=== PATIENT | female | born 1935 | race Caucasian/White ===

== ENCOUNTER 2016-04-25 11:04 | Outpatient (CLI) ==
[2016-02-19 03:43] VITALS: BMI 28.3
[2016-04-25 11:26] VITALS: BP 149/65; TEMP 96.8
== END 2016-04-25 11:05 | disposition home or self-care (01) ==
LOC: OPMED 11:04
PROVIDERS: ATTEND Internal Medicine Hematology & Oncology
DX: C34.11 Malignant neoplasm of upper lobe, right bronchus or lung (principal)
CPT/HCPCS: 96523; 99211

== ENCOUNTER 2016-06-02 14:30 | Outpatient (CLI) ==
[2016-06-02 15:02] VITALS: BMI 27.4
== END 2016-06-02 14:31 ==
LOC: AMBL 14:30
PROVIDERS: ATTEND Internal Medicine
DX: R07.89 Other chest pain (principal); W19.XXXA Unspecified fall, initial encounter

== ENCOUNTER 2016-06-02 14:45 | Emergency (ER) ==
[2016-06-02 15:02] VITALS: BP 146/70; TEMP 97.8; BMI 27.4
--- NOTE | 2016-06-02 16:04 | CT ---
EXAM: CT chest without contrast. HISTORY: Initial presentation for chest trauma due to a fall. COMPARISON: 07/04/2011. TECHNIQUE: Multiple axial images of the chest were obtained without intravenous contrast. Images w ere reformatted in the sagittal and coronal planes. FINDINGS: Left-sided chest port is present with tip terminating in the superior vena cava. Evaluat ion for lymphadenopathy is limited due to lack of intravenous contrast. Heart size is normal. No p ericardial effusion identified. No anterior mediastinal fluid collections noted. Atherosclerotic c alcifications are present. Emphysematous changes present bilaterally. Right upper lobe linear scarring is now present in the a kaykay previously noted right upper lobe nodule. No consolidation, pleural effusion or pneumothorax id entified. Limited images of the upper abdomen demonstrate no acute finding. Degenerative changes present throughout the spine. No acute fracture identified. IMPRESSION: Local No acute post-traumatic abnormality of the chest.
--- NOTE | 2016-06-02 16:05 | CT ---
EXAM: CT thoracic spine without contrast. HISTORY: Initial presentation for back pain following a fall. COMPARISON: Chest CT 07/04/2011. TECHNIQUE: Multiple axial images of the thoracic spine were obtained without intravenous contrast. Images were reformatted in the sagittal and coronal planes. FINDINGS: The normal curvature and alignment are maintained. Vertebral body heights are normal. N o fracture or subluxation is seen. Multilevel loss of disc height and endplate osteophyte formation noted, greatest in the mid thoracic spine. No significant central canal stenosis identified. Sofy cent soft tissues are unremarkable. IMPRESSION: No acute abnormality of the thoracic spine.
--- NOTE | 2016-06-02 16:15 | CT ---
EXAM: CT ABDOMEN AND PELVIS HISTORY: Fall TECHNIQUE: CT abdomen and pelvis without intravenous contrast. Images were reconstructed using 5 m m section thickness. Reformations were prepared. COMPARISON: 02/19/2016 FINDINGS: Diagnostic limitations exist without including contrast enhanced images. There is no evidence of fo evelia hepatic or splenic lesions or lacerations. Gallbladder is absent. Pancreas and adrenal glands are within normal limits. No hydronephrosis or nephrolithiasis. No evidence of renal cortical inju ry or hematoma. Moderately severe atherosclerotic disease. Normal stomach and appendix. No evidence of bowel wall hematoma or bowel obstruction. A few rare c olonic diverticula are seen. Urinary bladder is intact. No uterus is identified. There is no asci anitha. Abdominal wall is intact. No notable peripheral soft tissue hematoma. The bones reveal no acute de formity or fracture. Moderate degenerative changes of the lower spine and sacroiliac joints. No pn eumoperitoneum. See also same day CT thorax report. IMPRESSION: No acute injuries identified.
[2016-06-02] MEDS ORDERED: NORCO 5-325 PO STA (16:23)
--- NOTE | 2016-06-02 16:23 | ED.PDOC ---
General ED Provider: Dr. MARION ZAMORA Chief Complaint: Fall Stated Complaint: fall chest wall pain back pain Time Seen by Physician: 14:50 Mode of Arrival: Ambulance Information Source: Patient Exam Limitations: No limitations Primary Care Provider: LINDA GARZA Nursing and Triage Documentation Reviewed and Agree: Yes Trauma/Injury Complaint Exam - Trauma Complaint/Exam Location of Pain or Injury: Reports: Chest, Back Mechanism of Injury: Reports: Fall Onset/Duration: 1 day Symptoms Are: Still present Timing of Treatment: Delayed Initial Severity: Moderate Current Severity: Mild Character: Reports: Aching Aggravating: Reports: Movement Alleviating: Reports: Rest Associated Signs and Symptoms: Denies: LOC, Confusion, Memory loss, Lethargy, Vomiting, Bleeding, Bruising, Swelling, Extremity disuse, Painful respiration, Hoarseness, Dysphagia, Hemoptysis, Significant blood loss Penetrating Injury Risk Factors: Reports: None Related Surgical History: Reports: None Nexus Low Risk Criteria: No post-midline CS tender, No evidence of intoxicat., No Altered LOC, No focal neuro deficit, No distracting injuries Glascow Coma Scale (see protocol): 15 Compartment Syndrome Risk Factors: Present: Pain Differential Diagnoses: Fracture, Sprain, Strain Review of Systems - Review Of Systems Constitutional: Reports: No symptoms Eyes: Reports: No symptoms Ears, Nose, Mouth, Throat: Reports: No symptoms Respiratory: Reports: No symptoms Cardiac: Reports: Chest pain (wall) GI: Reports: No symptoms : Reports: No symptoms Musculoskeletal: Reports: Back pain Skin: Reports: No symptoms Neurological: Reports: No symptoms Endocrine: Reports: No symptoms Hematologic/Lymphatic: Reports: No symptoms All Other Systems: Reviewed and Negative Past Medical History - Past Medical History Previously Healthy: No Endocrine: Reports: DM 2, Dyslipidemia Cardiovascular: Reports: Hypertension Respiratory: Reports: COPD Hematological: Reports: Anemia Gastrointestinal: Reports: GERD Genitourinary: Reports: None Neuro/Psych: Reports: None Musculoskeletal: Reports: Arthritis, Joint Pain 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 (DR CASANOVA CHEMO AND RADIIATION) Last Menstrual Period: na - Surgical History General Surgical History: Reports: None - Family History Family History: Reports: None - Social History Smoking Status: Former smoker Hx Substance Use: No Alcohol Screening: None - Immunizations Tetanus Shot up to Date: No Physical Exam - Physical Exam Appearance: Well-appearing, No pain distress, Well-nourished Eyes: ARLET, EOMI, Conjunctiva clear ENT: Ears normal, Nose normal, Oropharynx normal Respiratory: Airway patent, Breath sounds clear, Breath sounds equal, Respirations nonlabored Cardiovascular: RRR, Pulses normal, No rub, No murmur GI/: Soft, Nontender, No masses, Bowel sounds normal, No Organomegaly Musculoskeletal: Normal strength, ROM intact, No edema, No calf tenderness Skin: Warm, Dry, Normal color Neurological: Sensation intact, Motor intact, Reflexes intact, Cranial nerves intact, Alert, Oriented Psychiatric: Affect appropriate, Mood appropriate Interpretation - Radiology Interpretation Radiology Interpretation By: Radiologist Radiology Results: No acute changes Critical Care Note - Critical Care Note Total Time (mins): 0 Course - Course Orders, Labs, Meds: Orders Category Date Time Status Hydrocodone Bit/Acetaminophen [[place] 5-325] MEDS 06/02/16 16:23 Discontinued 1 tab PO ONCE STA CT ABDOMEN/PELVIS WO CONTRAST Stat RADS 06/02/16 15:[address] CHEST W/O CONTRAST Stat RADS 06/02/16 15:[address] THORACIC SPINE W/O CONTRAST Stat RADS 06/02/16 15:14 Completed Medications Discontinued Medications Generic Name Dose Route Start Last Admin Trade Name Freq PRN Reason Stop Dose Admin Acetaminophen/Hydrocodone Bitart 1 tab 06/02/16 16:23 06/02/16 16:37 [place] 5-325 PO 06/02/16 16:24 1 tab ONCE STA Administration Vital Signs: Temp Pulse Resp BP Pulse Ox 06/02/16 14:45 97.8 F 74 16 146/70 H 98 Departure - Departure Time of Disposition: 17:00 Disposition: HOME SELF-CARE Discharge Problem: Chest wall pain Instructions: Chest Wall Pain (ED), Thoracic Pain (ED) Condition: Good Pt referred to PMD for follow-up: No Prescriptions: Hydrocodone/Acetaminophen [[place] 5-325 Tablet] 1 each PO Q6HR PRN #12 tablet PRN Reason: PAIN Allergies/Adverse Reactions: Allergies amoxicillin trihydrate [From Augmentin] Adverse Reaction (Verified 06/02/16 15: 05) potassium clavulanate [From Augmentin] Adverse Reaction (Verified 06/02/16 15:05 ) Home Medications: Ambulatory Orders Calcium Carbonate/Vitamin D3 [Calcium 600 + Vit D 400 Tablet] 1 each PO BID 09/07 Esomeprazole Magnesium [Nexium] 40 mg PO DAILY 10/02/12 Ferrous Fumarate [Iron] 55 mg PO DAILY 10/02/12 Folic Acid 1 mg PO DAILY 10/02/12 Nitroglycerin [Nitrostat] 0.3 mg SL PRN PRN 10/02/12 Primidone [Mysoline] 50 mg PO BID 10/02/12 Canagliflozin [Invokana] 100 mg PO DAILY 02/05/15 Glipizide 10 mg PO BID 02/05/15 Cyanocobalamin (Vitamin B-12) [Cyanocobalamin Injection] 1,000 mcg IJ MONTHLY Hydrocodone/Acetaminophen [[place] 5-325 Tablet] 1 each PO Q6HR PRN #12 tablet 09/11
== END 2016-06-02 17:01 | disposition home or self-care (01) ==
LOC: ED 14:45
DX: R07.89 Other chest pain (principal); M54.6 Pain in thoracic spine; W19.XXXA Unspecified fall, initial encounter
CPT/HCPCS: 99283

== ENCOUNTER 2016-06-28 10:46 | Outpatient (CLI) | payer OTHER | END 2016-06-28 10:47 | disposition home or self-care (01) | LOC: OUTPT 10:46 | PROVIDERS: ATTEND Internal Medicine Hematology & Oncology | DX: C34.11 Malignant neoplasm of upper lobe, right bronchus or lung (principal); Z45.2 Encounter for adjustment and management of vascular access device | CPT/HCPCS: 96523 ==

== ENCOUNTER 2016-10-19 06:43 | Emergency (ER) ==
[2016-10-19 06:56] VITALS: BP 157/80; TEMP 98; BMI 28.3
[2016-10-19 07:48] LABS: BASOPHILS # (AUTO) 0.1 K/uL (0-0.2); BASOPHILS % (AUTO) 0.9 % (0.0-3.0); EOSINOPHILS # (AUTO) 0.2 K/ul (0.0-0.7); EOSINOPHILS % (AUTO) 2.1 % (0.0-7.0); HEMATOCRIT 40.1 % (37.0-47.0); HEMOGLOBIN 13.6 g/dl (12.0-16.0); IMMATURE GRANULOCYTE % (AUTO) 0.8 % (0.0-5.0); LYMPHOCYTES # (AUTO) 1.4 K/uL (0.60-3.4); LYMPHOCYTES % (AUTO) 15.9 (10.0-50.0); MEAN CORPUSCULAR HEMOGLOBIN 29.4 pg (27.0-31.0); MEAN CORPUSCULAR HGB CONC 33.9 (31.8-35.4); MEAN CORPUSCULAR VOLUME 86.6 fl (81.0-99.0); MONOCYTES # (AUTO) 0.4 K/uL (0.4-2.0); MONOCYTES % (AUTO) 4.8 (0-10); NEUTROPHILS # (AUTO) 6.7 K/ul (2.0-6.9); NEUTROPHILS % (AUTO) 75.5; PLATELET COUNT 199 10^3/uL (140-440); RED BLOOD COUNT 4.63 10^6/ul (4.20-5.40); WHITE BLOOD COUNT 8.88 K/ul (4.6-10.2)
[2016-10-19 07:52] LABS: BILIRUBIN,URINE Negative (NEGATIVE); KETONES,URINE Negative (NEGATIVE); LEUKOCYTE ESTERASE ,URINE Negative (NEGATIVE); NITRITE,URINE Negative (NEGATIVE); PH,URINE 6.5 (5-9); PROTEIN,URINE Negative (NEGATIVE); URINE, BLOOD Negative (NEGATIVE)
[2016-10-19 07:55] LABS: ADD URINE MICROSCOPIC YES
[2016-10-19 07:56] LABS: BACTERIA,URINE 2+ (NOT PRESENT)
[2016-10-19 08:04] LABS: ALBUMIN 3.6 g/dL (3.4-5.0); ALBUMIN/GLOBULIN RATIO 1.09; ANION GAP 15.4; BILIRUBIN,TOTAL 0.58 mg/dL (0.00-1.20); BUN/CREATININE RATIO 12.71; CALCIUM 9.9 mg/dL (8.2-10.2); CREATININE 1.18 mg/dL (0.60-1.30); POTASSIUM 4.4 mmol/L (3.5-5.10); TOTAL PROTEIN 6.9 g/dL (5.8-8.1)
--- NOTE | 2016-10-19 08:07 | DI ---
EXAM: CHEST FRONTAL VIEW HISTORY: Cough. COMPARISON: 06/25/2012 FINDINGS: Heart size remains normal. Left venous access catheter is present ending over the superi or vena cava. There is a discoid density in the mid right lung suggesting transverse fissural thick ening. This can be fibrotic, atelectatic or infectious in etiology. Lungs are otherwise clear. No pleural fluid or vascular congestion. IMPRESSION: Discoid density mid right lung could represent atelectasis, scarring or mild pneumonia. Recommend fo llow-up chest radiography to assure clearance.
[2016-10-19] MEDS ORDERED: MORPHINE 4 MG/ML SYRINGE IM STA (08:34)
[2016-10-19] MEDS ORDERED: ZOFRAN 4 MG/2 ML IM STA (08:34)
--- NOTE | 2016-10-19 08:34 | ED.PDOC ---
General ED Provider: Dr. MARION ZAMORA Chief Complaint: Non-specific Complaint Stated Complaint: pain all over Time Seen by Physician: 07:00 (on arrival denied any pain) Mode of Arrival: Ambulance Information Source: Patient, EMT Exam Limitations: No limitations Primary Care Provider: LINDA GARZA Nursing and Triage Documentation Reviewed and Agree: Yes Miscellaneous Complaint Exam - Complex/Multi-System Complaint/Exam Symptoms Are: Resolved Episodes Lasting: Minutes Initial Severity: Mild Current Severity: None Associated Signs and Symptoms: Denies: Decreased responsiveness, Confusion, Agitation, Dizziness, Weakness, Syncope, Headache, Short of air, Cough, Wheezing , Hemoptysis, Chest pain, Palpitations, Edema, Nausea, Vomiting, Diarrhea, Abdominal pain, Back pain, Dysuria, Hematemesis, Melena, Decreased oral intake, Fever, Diaphoresis, Immunocompromised, Anticoagulation Therapy, Recent medication changes, Indwelling medical physiologist, Prior MRSA, Prior VRE, Recent trauma, Remote trauma Recent Echo/LV Function: No Respiratory Distress: None JVD Present: No Tachypnea Present: No Stridor Present: No Abdominal Findings: Present: Normal findings Glascow Coma Scale (see protocol): 15 Meningeal Signs Positive: No Focal Weakness: Present: None Focal Sensory Loss: Present: None Babinski Sign: Negative Right, Negative Left Review of Systems - Review Of Systems Constitutional: Reports: Malaise Eyes: Reports: No symptoms Ears, Nose, Mouth, Throat: Reports: No symptoms Respiratory: Reports: No symptoms Cardiac: Reports: No symptoms GI: Reports: No symptoms : Reports: No symptoms Musculoskeletal: Reports: No symptoms Skin: Reports: No symptoms Neurological: Reports: No symptoms Endocrine: Reports: No symptoms Hematologic/Lymphatic: Reports: No symptoms All Other Systems: Reviewed and Negative Past Medical History - Past Medical History Previously Healthy: No Endocrine: Reports: DM 2, Dyslipidemia Cardiovascular: Reports: Hypertension Respiratory: Reports: COPD Hematological: Reports: Anemia Gastrointestinal: Reports: GERD Genitourinary: Reports: None Neuro/Psych: Reports: None Musculoskeletal: Reports: Arthritis, Joint Pain 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 (DR CASANOVA CHEMO AND RADIIATION) Last Menstrual Period: PT HAS HAD A HYSTERECTOMY - Surgical History General Surgical History: Reports: None - Family History Family History: Reports: None - Social History Smoking Status: Former smoker Hx Substance Use: No Alcohol Screening: None - Immunizations Tetanus Shot up to Date: Yes Physical Exam - Physical Exam Appearance: Well-appearing, No pain distress, Well-nourished Eyes: ARLET, EOMI, Conjunctiva clear ENT: Ears normal, Nose normal, Oropharynx normal Respiratory: Airway patent, Breath sounds clear, Breath sounds equal, Respirations nonlabored Cardiovascular: RRR, Pulses normal, No rub, No murmur GI/: Soft, Nontender, No masses, Bowel sounds normal, No Organomegaly Musculoskeletal: Normal strength, ROM intact, No edema, No calf tenderness Skin: Warm, Dry, Normal color Neurological: Sensation intact, Motor intact, Reflexes intact, Cranial nerves intact, Alert, Oriented Psychiatric: Affect appropriate, Mood appropriate Interpretation - Radiology Interpretation Radiology Interpretation By: Radiologist Radiology Results: Negative Exam Interpreted: CXR Critical Care Note - Critical Care Note Total Time (mins): 0 Course - Course Hematology/Chemistry: 10/19/16 07:35 10/19/16 07:35 Orders, Labs, Meds: Lab Review 10/19/16 07:35 WBC 8.88 RBC 4.63 Hgb 13.6 Hct 40.1 MCV 86.6 MCH 29.4 MCHC 33.9 RDW Coeff of Raheem 14.0 Plt Count 199 Immature Gran % (Auto) 0.8 Neut % (Auto) 75.5 Lymph % (Auto) 15.9 Dickens % (Auto) 4.8 Eos % (Auto) 2.1 Baso % (Auto) 0.9 Immature Gran # (Auto) 0.1 Neut # 6.7 Lymph # 1.4 Dickens # 0.4 Eos # 0.2 Baso # 0.1 Sodium 140 Potassium 4.4 Chloride 101 Carbon Dioxide 28 Anion Gap 15.4 BUN 15 Creatinine 1.18 Estimated GFR (MDRD) 44.00 BUN/Creatinine Ratio 12.71 Glucose 188 H Calcium 9.9 Total Bilirubin 0.58 AST 13 L ALT 7 L Alkaline Phosphatase 72 Total Protein 6.9 Albumin 3.6 Globulin 3.3 Albumin/Globulin Ratio 1.09 Urine Color Yellow Urine Clarity Slightly Urine pH 6.5 Ur Specific Adams 1.015 Urine Protein Negative Urine Glucose (UA) 2+ Urine Ketones Negative Urine Blood Negative Urine Nitrite Negative Urine Bilirubin Negative Urine Urobilinogen 0.2 Ur Leukocyte Esterase Negative Ur Squamous Epith Cells Not present Amorphous Sediment 2+ Urine Bacteria 2+ Orders Category Date Time Status EKG-(ED ONLY) Stat CARDIO 10/19/16 07:25 Completed CBC W/ AUTO DIFF Stat LAB 10/19/16 07:35 Completed COMPREHENSIVE METABOLIC PANEL Stat LAB 10/19/16 07:35 Completed UA [URINALYSIS C & S IF INDICATED] Stat LAB 10/19/16 07:35 Completed URINE CULTURE Stat LAB 10/19/16 07:35 Received CHEST, 1V AP ONLY Stat RADS 10/19/16 07:25 Completed Vital Signs: Temp Pulse Resp BP Pulse Ox 10/19/16 06:44 98 F 70 20 157/80 H 99 Departure - Departure Time of Disposition: 08:33 Disposition: HOME SELF-CARE Discharge Problem: Pain aggravated by exercise Instructions: Fibromyalgia (ED) Condition: Good Pt referred to PMD for follow-up: Yes Additional Instructions: Please call your Family Physician as soon as possible to schedule a follow-up appointment. Allergies/Adverse Reactions: Allergies amoxicillin trihydrate [From Augmentin] Adverse Reaction (Verified 10/19/16 06: 56) potassium clavulanate [From Augmentin] Adverse Reaction (Verified 10/19/16 06:56 ) Home Medications: Ambulatory Orders Calcium Carbonate/Vitamin D3 [Calcium 600 + Vit D 400 Tablet] 1 each PO BID 09/07 Esomeprazole Magnesium [Nexium] 40 mg PO DAILY 10/02/12 Folic Acid 1 mg PO DAILY 10/02/12 Nitroglycerin [Nitrostat] 0.3 mg SL PRN PRN 10/02/12 Primidone [Mysoline] 50 mg PO BID 10/02/12 Canagliflozin [Invokana] 100 mg PO DAILY 02/05/15 Glipizide 10 mg PO BID 02/05/15 Cyanocobalamin (Vitamin B-12) [Cyanocobalamin Injection] 1,000 mcg IJ MONTHLY Carbidopa/Levodopa [Carbidopa-Levodopa 25-100 Tab] 1 each PO BID 10/19/16 Sitagliptin Phosphate [Januvia] 50 mg PO DAILY 10/19/16
== END 2016-10-19 09:40 | disposition home or self-care (01) ==
LOC: ED 06:43
DX: R52 Pain, unspecified (principal); E11.9 Type 2 diabetes mellitus without complications; E78.5 Hyperlipidemia, unspecified; I10 Essential (primary) hypertension; M19.90 Unspecified osteoarthritis, unspecified site; Z85.118 Personal history of other malignant neoplasm of bronchus and lung; Z79.899 Other long term (current) drug therapy
CPT/HCPCS: 36415; 80053; 81001; 85025; 87086; 93005; 93010; 96372; 99283

== ENCOUNTER 2017-03-06 19:00 | Outpatient (CLI) | END 2017-03-06 19:01 | disposition left against medical advice (07) | LOC: AMBL 19:00 | PROVIDERS: ATTEND Internal Medicine Geriatric Medicine | DX: R53.1 Weakness (principal); M54.9 Dorsalgia, unspecified; G89.29 Other chronic pain ==

== ENCOUNTER 2017-03-21 07:48 | Outpatient (CLI) | END 2017-03-21 07:49 | disposition left against medical advice (07) | LOC: AMBL 07:48 | PROVIDERS: ATTEND Internal Medicine | DX: R53.1 Weakness (principal); W06.XXXA Fall from bed, initial encounter ==

== ENCOUNTER 2017-06-05 19:22 | Inpatient (IN) | payer OTHER ==
[2017-06-05] MEDS ORDERED: NORCO 5-325 PO STA (19:32)
--- NOTE | 2017-06-05 19:38 | ED.PDOC ---
General ED Provider: Dr. ALLAN JOHN Chief Complaint: Fall Stated Complaint: Patient states she fell at home. per daughter she was trying to go to the bathroom with her walker when she let go of the walker falling landing on her left side. EMS statse they found her on her right side. Not sure if she hit her head. She mostly complains of lower back pain and left shoulder pain. Unable to bear weight. Time Seen by Physician: 19:33 Mode of Arrival: Ambulance Information Source: Patient, EMT Exam Limitations: No limitations Primary Care Provider: LINDA GARZA Nursing and Triage Documentation Reviewed and Agree: Yes Reviewed sepsis parameters & appropriate labs ordered?: Yes System Inflammatory Response Syndrome: Not Applicable Sepsis Protocol: For patient's 13 years and over: Temp is 96.8 and below OR 101 and greater Pulse >90 BPM Resp >20/minute Acutely Altered Mental Status Are patient's symptoms suggestive of a new infection, such as: -Pneumonia -Skin, Soft Tissue -Endocarditis -UTI -Bone, Joint Infection -Implantable Device -Acute Abdominal Infection -Wound Infection -Meningitis -Blood Stream Catheter Infection -Unknown System Inflammatory Response Syndrome: Not Applicable Trauma/Injury Complaint Exam - Trauma Complaint/Exam Location of Pain or Injury: Reports: Head, Neck, LUE (shoulder area) Mechanism of Injury: Reports: Fall (from standing position.) Onset/Duration: 1 hour ago Symptoms Are: Still present Timing of Treatment: Immediate Initial Severity: Severe Current Severity: Severe Character: Reports: Aching, Sharp, Stabbing Aggravating: Reports: Movement Associated Signs and Symptoms: Denies: LOC, Confusion, Memory loss, Lethargy, Vomiting, Bleeding, Bruising, Swelling, Extremity disuse, Painful respiration, Hoarseness, Dysphagia, Hemoptysis, Significant blood loss : No Penetrating Injury Risk Factors: Reports: None EMS Interventions: Absent: C-spine immobilization, Backboard applied, Intubated , Needle Decompression per., Vascular access obtained Nexus Low Risk Criteria: No evidence of intoxicat., No Altered LOC, No focal neuro deficit, No distracting injuries Glascow Coma Scale (see protocol): 15 Compartment Syndrome Risk Factors: Present: Pain. Absent: Paralysis, Pallor, Pulselessness, Paresthesias Trauma Findings: Present: Neck tenderness, Back tenderness (mild diffuse), Limited ROM (left shoulder ). Absent: [place] eyes, Hemotympanum, Nasal deformity, Dental tenderness, Dental injury, Dental malocclusion, Neck spasm, SubQ Air, Crepitus, Airway obstructed, Gross blood Differential Diagnoses: Fracture, Dislocation Body Picture: 1 - tenderness and pain 2 - non specified area of pain, unable to locate. 3 - mild pain and tenderness Review of Systems - Review Of Systems Constitutional: Reports: No symptoms Eyes: Reports: No symptoms Ears, Nose, Mouth, Throat: Reports: No symptoms Respiratory: Reports: No symptoms Cardiac: Reports: No symptoms GI: Reports: No symptoms : Reports: No symptoms Musculoskeletal: Reports: Back pain (Lower back ), Joint pain (Left shoulder) Skin: Reports: No symptoms Neurological: Reports: Anxiety Endocrine: Reports: No symptoms Hematologic/Lymphatic: Reports: No symptoms All Other Systems: Reviewed and Negative Past Medical History - Past Medical History Previously Healthy: No Endocrine: Reports: DM 2, Dyslipidemia Cardiovascular: Reports: Hypertension Respiratory: Reports: COPD Hematological: Reports: Anemia Gastrointestinal: Reports: GERD Genitourinary: Reports: None Neuro/Psych: Reports: None Musculoskeletal: Reports: Arthritis, Joint Pain 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 (DR CASANOVA CHEMO AND RADIIATION) Last Menstrual Period: YEARS - Surgical History General Surgical History: Reports: None - Family History Family History: Reports: None - Social History Smoking Status: Former smoker Hx Substance Use: No Alcohol Screening: None - Immunizations Tetanus Shot up to Date: Yes Physical Exam - Physical Exam Appearance: Ill-appearing Pain Distress: Severe Eyes: ARLET, EOMI, Conjunctiva clear Neck: Supple Respiratory: Airway patent, Breath sounds clear, Breath sounds equal, Respirations nonlabored Cardiovascular: RRR, Pulses normal, No rub, No murmur GI/: Soft Musculoskeletal: Limited ROM Skin: Warm, Dry Neurological: Alert, Oriented Psychiatric: Anxious Interpretation - Radiology Interpretation Radiology Interpretation By: Radiologist Radiology Results: No acute changes (arthitis , sacrailitis) Exam Interpreted: CT Scan (Cervical spine, lumber ) Radiology Interpretation By: Radiologist Radiology Results: Positive (communited & displaced fracture at the level of the humeral neck.) Exam Interpreted: CT Scan - EKG Interpretation Time of EKG #1: 20:39 Rate: Normal Rhythm: Sinus Ectopy: PVCs Otis: NL ST Segment: Normal Re-Evaluation - Re-Evaluation Status: Improved Vital Signs Stable: Yes Physician Notification - Case Discussed Physician Notified: Ej Time of Notification: 20:55 (admit to observation ) Critical Care Note - Critical Care Note Total Time (mins): 0 Course - Course Hematology/Chemistry: 06/07/17 05:10 06/05/17 21:00 Orders, Labs, Meds: Lab Review 06/05/17 06/05/17 21:00 21:00 WBC 13.00 H RBC 4.45 Hgb 13.4 Hct 39.1 MCV 87.9 MCH 30.1 MCHC 34.3 RDW Coeff of Raheem 13.7 Plt Count 196 Immature Gran % (Auto) 1.1 Neut % (Auto) 83.7 Lymph % (Auto) 9.4 L Mower % (Auto) 4.3 Eos % (Auto) 0.9 Baso % (Auto) 0.6 Immature Gran # (Auto) 0.1 Neut # (Auto) 10.9 H Lymph # (Auto) 1.2 Mower # (Auto) 0.6 Eos # (Auto) 0.1 Baso # (Auto) 0.1 Sodium 138 Potassium 4.1 Chloride 102 Carbon Dioxide 25 Anion Gap 15.1 BUN 12 Creatinine 1.01 Estimated GFR (MDRD) 53.00 BUN/Creatinine Ratio 11.88 Glucose 246 H Calcium 9.1 Total Bilirubin 0.6 AST 13 L ALT 8 L Alkaline Phosphatase 70 Total Creatine Kinase 32 Troponin I 0.0280 Total Protein 6.9 Albumin 3.5 Globulin 3.4 Albumin/Globulin Ratio 1.03 Orders Category Date Time Status EKG-(ED ONLY) Stat CARDIO 06/05/17 19:34 Completed ED IV/MEDIPORT/POWERPORT .ONCE EMERGENCY 06/05/17 20:31 Active CBC W/ AUTO DIFF Stat LAB 06/05/17 21:00 Completed COMPREHENSIVE METABOLIC PANEL Stat LAB 06/05/17 21:00 Completed CREATINE KINASE Stat LAB 06/05/17 21:00 Completed TROPONIN I Stat LAB 06/05/17 21:00 Completed URINALYSIS C & S IF INDICATED Stat LAB 06/05/17 19:34 Uncollected 0.9 % Sodium Chloride [Saline Flush] MEDS 06/05/17 20:31 Active 1 syr IVF PRN PRN Hydrocodone Bit/Acetaminophen [[place] 5-325] MEDS 06/05/17 19:32 Discontinued 1 tab PO ONCE STA Morphine Sulfate [Morphine 10 mg/ml Syringe] MEDS 06/05/17 20:50 Discontinued 10 mg .ROUTE .STK-MED ONE Morphine Sulfate [Morphine 2 mg/ml Syringe] MEDS 06/05/17 20:52 Discontinued 2 mg IVP ONCE STA Ondansetron HCl/Pf [Zofran 4 mg/2 ml] MEDS 06/05/17 20:52 Discontinued 4 [address]P ONCE [address]A [address] CERVICAL SPINE W/O CONTRAST Stat RADS 06/05/17 19:[address] HEAD W/O CONTRAST Stat RADS 06/05/17 19:[address] LUMBAR SPINE W/O CONTRAST Stat RADS 06/05/17 19:[address] PELVIS W/O CONTRAST Stat RADS 06/05/17 19:[address] SHOULDER LEFT W/O CONTRAST Stat RADS 06/05/17 19:53 Completed SHOULDER, LEFT MIN 2V Stat RADS 06/05/17 19:31 Completed Medications Generic Name Dose Route Start Last Admin Trade Name Freq PRN Reason Stop Dose Admin Hydrocodone Bitart/Acetaminophen 1 tab 06/06/17 08:51 06/07/17 15:12 [place] 7.5-325 PO 1 tab Q4HR PRN Administration pain Calamine/Phenol 1 applic 06/06/17 09:00 06/07/17 09:19 Calmoseptine Ointment TP 1 applic BID ROSALIA Administration Calcium/Vitamin D 1 each 06/06/17 21:00 06/07/17 09:08 Calcium 500 + Vit D 200 Mg Tablet PO 1 each BID ROSALIA Administration Carbidopa/Levodopa 1 tab 06/06/17 21:00 06/07/17 09:08 Sinemet 25-100 PO 1 tab BID ROSALIA Administration Enoxaparin Sodium 40 mg 06/06/17 09:00 06/07/17 09:12 Lovenox SUBCUT 40 mg DAILY ROSALIA Administration Fluconazole 100 mg 06/06/17 13:30 06/07/17 09:09 Diflucan PO 06/08/17 23:59 100 mg DAILY ROSALIA Administration Folic Acid 1 mg 06/07/17 09:00 06/07/17 09:05 Folic Acid PO 1 mg DAILY ROSALIA Administration Glipizide 10 mg 06/06/17 17:30 06/07/17 17:14 Glucotrol PO 10 mg BIDWM ROSALIA Administration Sodium Chloride 1,000 mls @ 75 mls/hr 06/05/17 23:00 06/07/17 14:14 Sodium Chloride IV 75 mls/hr .[id number] ROSALIA Administration Insulin Glargine 10 unit 06/06/17 21:00 06/06/17 20:41 Lantus SUBCUT 10 unit BEDTIME ROSALIA Administration Miconazole Nitrate 1 applic 06/06/17 13:30 06/07/17 09:18 Micatin TP 1 applic BID ROSALIA Administration Morphine Sulfate 2 mg 06/05/17 22:32 06/06/17 14:50 Morphine 2 Mg/Ml Syringe IVP 2 mg Q4H PRN Administration Severe Pain Nitroglycerin 0.4 mg 06/06/17 15:37 Nitrostat SL Q5MIN X 3 DOSES PRN CHEST PAIN Non-Formulary Medication 100 mg 06/06/17 09:00 06/07/17 05:40 Canagliflozin [Invokana] PO 100 mg QDAC ROSALIA Administration Ondansetron HCl 4 mg 06/05/17 22:32 Zofran 4 Mg/2 Ml IVP Q6H PRN Nausea / Vomiting Pantoprazole Sodium 40 mg 06/07/17 06:30 06/07/17 05:40 Protonix PO 40 mg QDAC ROSALIA Administration Sitagliptin Phosphate 50 mg 06/07/17 09:00 06/07/17 09:11 Januvia PO 50 mg DAILY ROSALIA Administration Sodium Chloride 1 syr 06/05/17 20:31 Saline Flush IVF PRN PRN To flush IV Discontinued Medications Generic Name Dose Route Start Last Admin Trade Name Freq PRN Reason Stop Dose Admin Hydrocodone Bitart/Acetaminophen 1 tab 06/05/17 19:32 06/05/17 20:14 [place] 5-325 PO 06/05/17 19:33 1 tab ONCE STA Administration Carbidopa/Levodopa 1 tab 06/06/17 09:00 06/06/17 09:12 Sinemet 25-100 PO 1 tab BID ROSALIA Administration Folic Acid 1 mg 06/06/17 09:00 06/06/17 09:12 Folic Acid PO 1 mg DAILY ROSALIA Administration Morphine Sulfate 2 mg 06/05/17 20:52 06/05/17 20:56 Morphine 2 Mg/Ml Syringe IVP 06/05/17 20:53 2 mg ONCE STA Administration Non-Formulary Medication 1 each 06/06/17 09:00 06/06/17 09:13 Calcium Carbonate/Vitamin D3 [Calcium 600 + Vit D 400 Tablet] PO 1 each BID ROSALIA Administration Non-Formulary Medication 40 mg 06/06/17 09:00 06/06/17 09:12 Esomeprazole Magnesium [Nexium] PO 40 mg QDAC ROSALIA Administration Non-Formulary Medication 0.3 mg 06/05/17 22:39 Nitroglycerin [Nitrostat] SL Q5MIN X 3 DOSES PRN chest pain Non-Formulary Medication 10 mg 06/06/17 08:45 06/06/17 09:13 Glipizide [Glipizide] PO 10 mg BIDWM ROSALIA Administration Ondansetron HCl 4 mg 06/05/17 20:52 06/05/17 20:56 Zofran 4 Mg/2 Ml IVP 06/05/17 20:53 4 mg ONCE STA Administration Sitagliptin Phosphate 50 mg 06/06/17 09:00 06/06/17 09:12 Januvia PO 50 mg DAILY ROSALIA Administration Vital Signs: Temp Pulse Resp BP Pulse Ox 06/05/17 19:22 98 F 72 16 124/94 H 95 Departure - Departure Time of Disposition: 23:33 Disposition: PLACED OBSERVATION Discharge Problem: Fracture of neck of humerus Qualifiers: Encounter type: initial encounter Fracture type: closed Laterality: left Qualified Code(s): S42.212A - Unspecified displaced fracture of surgical neck of left humerus, initial encounter for closed fracture Condition: Stable Pt referred to PMD for follow-up: Yes IPMP verified?: No Allergies/Adverse Reactions: Allergies amoxicillin trihydrate [From Augmentin] Adverse Reaction (Verified 10/19/16 06: 56) potassium clavulanate [From Augmentin] Adverse Reaction (Verified 10/19/16 06:56 ) Home Medications: Ambulatory Orders Calcium Carbonate/Vitamin D3 [Calcium 600 + Vit D 400 Tablet] 1 each PO BID 09/07 Esomeprazole Magnesium [Nexium] 40 mg PO DAILY 10/02/12 Folic Acid 1 mg PO DAILY 10/02/12 Nitroglycerin [Nitrostat] 0.3 mg SL PRN PRN 10/02/12 Primidone [Mysoline] 50 mg PO BID 10/02/12 Canagliflozin [Invokana] 100 mg PO DAILY 02/05/15 Cyanocobalamin (Vitamin B-12) [Cyanocobalamin Injection] 1,000 mcg IJ MONTHLY Carbidopa/Levodopa [Carbidopa-Levodopa 25-100 Tab] 1 each PO BID 10/19/16 Sitagliptin Phosphate [Januvia] 50 mg PO DAILY 10/19/16 Glipizide 10 mg PO BIDWM 06/06/17 Disposition Discussed With: Patient, Family
--- NOTE | 2017-06-05 20:12 | CT ---
EXAM: CT of the head without contrast. HISTORY: Fall. Head injury.. COMPARISON: 01/31/2012 TECHNIQUE: Contiguous axial images at 5 mm intervals were obtained from the base of the skull to the vertex the calvarium. No contrast was given. FINDINGS: The CSF containing spaces are diffusely enlarged consistent with atrophy. The ventricles are diffusely enlarged which is increased in comparison to the prior study, likely secondary to atrop hy. There are no extraaxial fluid collections. There is no evidence of an acute intracranial hemorr aline. There are no masses or mass effect. Hypodensities are seen in the periventricular white matte r consistent with chronic ischemic changes from small vessel disease. There are no acute vascular te rritory infarcts. Carotid artery and vertebral artery calcifications are seen. The osseous structu res are normal. The extracranial soft tissues are otherwise unremarkable. IMPRESSION: Chronic age-related changes. No acute intracranial abnormalities.
--- NOTE | 2017-06-05 20:17 | CT ---
EXAM: CT of the cervical spine without contrast. HISTORY: Fall. Neck pain. COMPARISON: 02/19/2016. TECHNIQUE: Contiguous axial images at 2 mm intervals obtained from the base of skull to the upper ch est. Sagittal and coronal reformats were reviewed. No contrast. FINDINGS: There is normal curvature and alignment. The vertebral heights are well maintained. Ther e are no acute or healing fractures. There are no lytic or blastic lesions. Mild osteopenia is seen . The soft tissues are unremarkable. There are vas calcifications. C2-3: Left neural foramen narrowing. C3-4: Uncovertebral hypertrophy. Posterior osteophyte. Right neural foramen narrowing. C4-5: Posterior osteophytes. No definite spinal canal or neural foraminal narrowing. C5-6: Severe disc narrowing. Posterior osteophytes. Left neural foramen narrowing. C6-7: Disc narrowing. Posterior osteophytes. Mild bilateral neural foramen narrowing. IMPRESSION: 1. No acute fractures. 2. Diffuse degenerative disc disease and degenerative joint disease. 3. Carotid artery calcifications.
--- NOTE | 2017-06-05 20:49 | CT ---
EXAM: CT of the pelvis. HISTORY: Fall. Hip pain. COMPARISON: CT of the abdomen pelvis dated 06/02/2016. TECHNIQUE: Contiguous axial as a 3 mm intervals obtained through the pelvis. Sagittal and coronal r eformats were reviewed. No contrast. FINDINGS: There are no acute or healing fractures. There are no lytic or blastic lesions. Joint na rrowing osteophyte formation is seen in both hips. There is joint narrowing and sclerosis of the sac roiliac joints, right greater left. Early ankylosis is seen on the right. There are mild degenerati ve changes of the lumbar spine. Osteopenia is noted. Diffuse vascular calcifications are noted. Th e soft tissues are otherwise unremarkable. The appendix is normal. The bladder is unremarkable. IMPRESSION: 1. No acute fractures. 2. Sacroiliitis, right greater than left. 3. Osteoarthritis.
[2017-06-05] MEDS ORDERED: MORPHINE 10 MG/ML SYRINGE ONE (20:50)
[2017-06-05] MEDS ORDERED: MORPHINE 2 MG/ML SYRINGE IVP STA (20:52)
[2017-06-05] MEDS ORDERED: ZOFRAN 4 MG/2 ML IVP STA (20:52)
--- NOTE | 2017-06-05 20:55 | CT ---
EXAM: CT of the lumbar spine. HISTORY: Fall. Low back pain. COMPARISON: None. TECHNIQUE: Contiguous axial images at 3 mm intervals were obtained through the lumbar spine. Sagitt al and coronal reformats were reviewed. No contrast. FINDINGS: There are five [id number] vertebral bodies. There is mild curvature spine to the lef t measuring approximately 5 degrees. The vertebral heights are well maintained. Diffuse osteopenia is noted. Heavy vascular calcifications are seen. There is no aneurysm. There is no retroperitonea l adenopathy. Bilateral sacroiliitis is seen, right greater left. There is questionable ankylosis o n the right. Segmental analysis: L1-2: No spinal canal or neural foramen narrowing. L2-3: Facet hypertrophy. No definite spinal canal or neural foramen narrowing.. L3-4: No spinal canal or neural foramen narrowing.. L4-5: Bilateral facet hypertrophy. Broad-based disc bulge. Mild bilateral neural foramen narrowing .. L5-S1: Disc narrowing. Facet hypertrophy. Bilateral neural foramen narrowing, right greater left. IMPRESSION: 1. No acute fractures. 2. Degenerative disc disease at multiple levels as spine, most pronounced L4-5 and L5 S1. Mild bila teral neural foramen narrowing. 3. Aortic calcifications.
[2017-06-05] MEDS ORDERED: MORPHINE 2 MG/ML SYRINGE ONE (20:56)
--- NOTE | 2017-06-05 20:57 | CT ---
EXAM: CT left shoulder without intravenous contrast 06/05/2017. Sagittal and coronal reformatted im ages obtained HISTORY: Fall. Severe pain COMPARISON: 06/05/2017 FINDINGS: Comminuted and displaced fracture is present at the level of the left humeral neck. There is approximately one half shaft width displacement. The humeral head remains aligned with the glenoid. The acromioclavicular joint aligns normally. The remaining visualized osseous structures appear intact. IMPRESSION: Comminuted and displaced fracture at the level of the left humeral neck.
[2017-06-05] MEDS ORDERED: ZOFRAN 4 MG/2 ML IVP PRN (22:32)
[2017-06-05] MEDS ORDERED: NON-FORMULARY MEDICATION (Nitroglycerin [Nitrostat] 0.3 MG) SL PRN (22:39)
[2017-06-05] MEDS: SODIUM CHLORIDE 1,000 ML IV SCH (23:53)
[2017-06-06 00:26] VITALS: BMI 26.4
[2017-06-06] MEDS: MORPHINE 2 MG/ML SYRINGE IVP PRN ×3 (02:02→14:50)
--- NOTE | 2017-06-06 07:51 | DI ---
EXAM: Two views of the left shoulder HISTORY: Arm pain post fall. COMPARISON: CT left shoulder same day FINDINGS: There is a minimally displaced fracture of the left humeral neck. This is questionably com minuted. There is no lytic or blastic lesion identified. The soft tissues are unremarkable. IMPRESSION: Questionable comminuted and displaced fracture of the left humeral neck.
[2017-06-06] MEDS ORDERED: NON-FORMULARY MEDICATION (Glipizide [Glipizide] 10 MG) PO SCH (08:45)
[2017-06-06] MEDS ORDERED: GLUCOTROL PO SCH (09:00)
[2017-06-06] MEDS ORDERED: NON-FORMULARY MEDICATION (Esomeprazole Magnesium [Nexium] 40 MG) PO SCH (09:00)
[2017-06-06] MEDS ORDERED: FOLIC ACID PO SCH (09:00)
[2017-06-06] MEDS ORDERED: JANUVIA PO SCH (09:00)
[2017-06-06] MEDS ORDERED: SINEMET 25-100 PO SCH (09:00)
[2017-06-06] MEDS: NORCO 7.5-325 PO PRN ×2 (09:12→21:01)
[2017-06-06] MEDS: NON-FORMULARY MEDICATION (Canagliflozin [Invokana] 100 MG) PO SCH (09:13)
[2017-06-06] MEDS: CALMOSEPTINE OINTMENT TP SCH ×2 (09:14→20:45)
[2017-06-06] MEDS: LOVENOX SUBCUT SCH (09:16)
--- NOTE | 2017-06-06 11:37 | RS.PTINEVL ---
Subjective - Patient information Date of Evaluation: 06/05/17 Date of Arrival on Unit: 06/05/17 Admitted From:: Home Diagnosis: comminuted and displaced fx of L humeral neck Usual Living Arrangement: Alone Living Arrangement Comments: Daughters have been staying with her recently, taking turns Home Environment: House, Stairs (few), Rail Medical History: Hypertension, COPD, Diabetes, Arthritis, Cancer (lung) Medical History Comments:: GERD, DDD, anemia LATEX ALLERGY?: No Medications: see chart Subjective Information/ Patient Comments:: pt states "don't move me, don't move my arm". Explained importance of getting out of bed due for skin precautions as well as to prevent pneumonia. pt somewhat cooperative. - Level of function Prior to this admission, the patient could do the following:: Independent Ambulation Abilities prior to this admission: pt required assist of daughters for ADL's, daughters taking turns staying with patient. Dtr reports has been hard on her back. Current Level of Function: Partially Dependent Current Equipment Used at Home: Walker, chair seat in bathroom Pain Assessement - Location L upper arm Description: Sharp, Acute Intensity: 9 Pain Behavior: Moaning, Irritability, Facial Grimacing Pain Aggravating Factors: Changing Position, Standing, Walking Pain Alleviating Factors: Medication Interventions - Objective Patient Orientation: Person, Place Current Interventions: IV's, Telemetry Observation: assisted RN in applying shld immobilizer brace. 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) Right Lower Extremity Strength: Mild Weakness (hip flex 4-/5, knee flex/ext 4/5 , ankle DF/PF 4/5) Left Lower Extremity Strength: Mild Weakness (hip flex 4-/5, knee flex/ext 4/5, ankle DF/PF 4/5) Sensation - Sensation Right Upper Extremity Sensation: Intact/Normal Left Upper Extremity Sensation: Intact/Normal Right Lower Extremity Sensation: Intact/Normal Left Lower Extremity Sensation: Intact/Normal Palpation Palpation Findings: Tenderness, Muscle Guarding Comments:: LUE due to fx Balance - Sitting Balance and Reactions Static Sitting Balance: Poor Dynamic Sitting Balance: Poor Sitting Equilibrium Reactions: Delayed Right, Absent Left Sitting Protective Reactions: Delayed Right, Absent Left - Standing Balance and Reactions Static Standing Balance: Poor Dynamic Standing Balance: Poor Standing Equilibrium Reactions: Absent Left, Absent Right Standing Protective Reactions: Absent Left, Absent Right - Comments Balance Assessment Comments: pt leans to R requires CGA to min assist to maintain sitting balance. Functional Mobility - Bed Mobility Rolling R/L: Max Assist, 2 person assist Scooting: Max Assist, 2 person assist Supine to Sit: Max Assist, 2 person assist - Transfers Sit to Stand: Mod Assist, 2 person assist Stand to Sit: Mod Assist, 2 person assist - Safety Awareness Safety Awareness: Poor MITCHELL INDEX SCORE: 20 Ambulation - Ambulation Assistive Device Used: Óscar Walker Orthotic/Prosthetic Device: Yes (L shld immobilizer) Distance: 4 steps Assistance needed with Ambulation: Mod Assist, 2 person assist Gait Deviations: Wide Based gait, Forward posture, Short stride Ambulation Comments: pt with significant flexed posture. pt hollering during transfer "I can't, I can't" pt with max encouragement amb 4 steps with mod x 2 with hemiwalker. Factors Affecting Ambulation: Decreased Balance, Pain, Weakness, Decreased Safety, Cognitive Status, Limited Endurance Treatment time - Time with patient Total treatment time: 35 Patient Education - Education Patient Education: Activity Modification, Education of Plan of Care Teaching Recipient: Patient, Family Teaching Methods: Discussion Comments: Discussion with patient and family regarding POC as well as importance of pt being up out of bed. Assessment - Assessment Problem List:: Decreased level of function, Requires training/education, Decreased safety/Risk of falls, Weakness, Pain limits previous level of function , Cognitive status limits abilities Rehab Potential: Good Further Therapy Indicated?: Yes Comments: G codes: mobility current CM. mobility goal CL Evaluation Complexity: HISTORY: Medium (DDD, humeral fx, DM, COPD, lung CA), EXAM OF BODY SYSTEMS: Medium (pain, decreased strength, balance, transfer and gait training), CLINICAL PRESENTATION: Medium (evolving), CLINICAL DECISION MAKING: Medium Short Term Goals GOAL #1: pt rolling to R with mod x 2, scooting up in bed mod x 2 Goal to be met by: 06/09/17 GOAL #2: pt transfer sup to/from sit with mod x 2, sit to/from stand min to mod x 2 Goal to be met by: 06/09/17 GOAL #3: pt amb 25ft with hemiwalker with min x 2 Goal to be met by: 06/09/17 GOAL #4: Stand pivot bed to/from chair with min x 2 Goal to be met by: 06/09/17 Smoke Control Supervisor Goals GOAL #1: pt rolling to R with min x 1 Goal to be met by: 06/12/17 GOAL #2: Transfer sup to/from sit to/from stand min x1 Goal to be met by: 06/12/17 GOAL #3: pt amb with hemiwalker 75ft with min x 1 Goal to be met by: 06/12/17 Plan Plan of Care: Therapeutic EX, Therapeutic Activity Modalities: Cold Pack/Cryotherapy Other:: gait training Frequency of Treatment: 1-2 X day, as tolerated Duration of Treatment: 1 Week Anticipated Discharge Destination: undetermined at this time Has the Physician been added for Co-signature?: Yes
[2017-06-06] MEDS: SODIUM CHLORIDE 1,000 ML IV SCH (12:35)
[2017-06-06] MEDS: DIFLUCAN PO SCH (14:19)
[2017-06-06] MEDS: MICATIN TP SCH ×2 (14:19→20:45)
[2017-06-06] MEDS ORDERED: NITROSTAT SL PRN (15:37)
[2017-06-06] MEDS: GLUCOTROL PO SCH (17:20)
[2017-06-06] MEDS: LANTUS SUBCUT SCH (20:41)
[2017-06-06] MEDS: CALCIUM 500 + VIT D 200 MG TABLET PO SCH (20:44)
[2017-06-06] MEDS: SINEMET 25-100 PO SCH (20:44)
[2017-06-07] MEDS: SODIUM CHLORIDE 1,000 ML IV SCH ×2 (01:21→14:14)
[2017-06-07] MEDS: NORCO 7.5-325 PO PRN ×3 (03:08→15:12)
[2017-06-07] MEDS: NON-FORMULARY MEDICATION (Canagliflozin [Invokana] 100 MG) PO SCH (05:40)
[2017-06-07] MEDS: PROTONIX PO SCH (05:40)
[2017-06-07] MEDS: FOLIC ACID PO SCH (09:05)
--- NOTE | 2017-06-07 09:05 | RS.OTINEVL ---
Subjective - Patient information Date of Evaluation: 06/06/17 Date of Arrival on Unit: 06/06/17 Admitted From:: Emergency Dept Diagnosis: Left humeral head fracture Usual Living Arrangement: Alone Living Arrangement Comments: Family had been living with her /7 for the past few months according to her daughter. Home Environment: House Medical History Comments:: Left humeral head fracture. Right shoulder repair of Rotator cuff, DMII, Lung CA, chemo, radiation, OA, Hysterectomy, gastroreflux, LATEX ALLERGY?: No Surgical History: Shoulder Replacement Surgical History Comments:: Right shoulder repair, hysterectomy, Subjective Information/ Patient Comments:: "Don't move my arm." "It will hurt." - Level of function Prior to this admission, the patient could do the following:: Independent Ambulation Abilities prior to this admission: Pt was living at home alone until a few months ago. Pt is incontinent of bladder. Pt has home makers coming in to help with cleaning, and bathing, and washing clothes. Pt was walking with a rolling walker at home. Current Level of Function: Partially Dependent Current Equipment Used at Home: Walker, chair seat in bathroom Pain Assessment - Pain Pain Score: 9 Side: left Pain Location Body Site: Shoulder Pain Aggravating Factors: ADL's, Changing Position, Exercise/Activity, Standing , Sitting, Walking Pain Alleviating Factors: Medication, Inactivity (Pt has a brace to hold her left UE to her side.) Interventions - Objective Patient Orientation: Person Current Interventions: IV's, Telemetry Observation: Pt is scared and in pain. Pt does not want to be moved much. Interventions - ROM Right Upper Extremity AROM: WFL's Left Upper Extremity AROM: Marked limitation - Strength Right Upper Extremity Strength: Mild Weakness Left Upper Extremity Strength: Severe Weakness - Sensation Right Upper Extremity Sensation: Intact/Normal Left Upper Extremity Sensation: Intact/Normal Balance - Sitting Balance Static Sitting Balance: Poor Dynamic Sitting Balance: Poor - Standing Balance Static Standing Balance: Poor Dynamic Standing Balance: Poor ADL Skills - Self Feeding Self Feeding: Min Assist, 1 person assist - Grooming Grooming: Max Assist, 2 person assist - Bathing Bathing UE: Max Assist, 2 person assist Bathing LE: Max Assist, 2 person assist - Dressing Dressing UE: Max Assist, 2 person assist Dressing LE: Max Assist, 2 person assist - Toilet Management Toileting Management: Max Assist, 2 person assist Functional Mobility - Bed Mobility Rolling R/L: Max Assist, 1 person assist Scooting: Max Assist, 2 person assist Supine to Sit: Max Assist, 2 person assist Sit to Supine: Max Assist, 2 person assist - Transfers Sit to Stand: Max Assist, 2 person assist Stand to Sit: Mod Assist, 2 person assist Stand Pivot Transfers: Max Assist, 2 person assist - Ambulation Weight Bearing Status: FWB Assistive Device Used: Óscar Walker Assistance needed with Ambulation: 2 person assist Comments:: Pt requires two people to transfer her stand pivot from EOB to chair. - Safety Awareness Safety Awareness: Poor MITCHELL INDEX SCORE: . Additional Treatment Performed - Additional units charged OT 1 to 1 Activity: 15 - Time with patient Total treatment time: 46 Activities Patient Interests:: Visiting/Socializing Comments:: bed mobility, transfers Patient Education Patient Education: Education of diagnosis, Home Exercise Program, Education of Plan of Care Teaching Recipient: Patient, Family Teaching Methods: Discussion Assessment Problem List:: Decreased level of function, Requires training/education, Decreased safety/Risk of falls, Weakness, Pain limits previous level of function Rehab Potential: Good Further Therapy Indicated?: Yes Evaluation Complexity: HISTORY: High, EXAM OF BODY SYSTEMS: High, CLINICAL DECISION MAKING: High Short Term Goals - Goals GOAL 1: Pt to increase supine to sit to moderate assistance. Goal to be met by: 06/13/17 GOAL 2: Pt to increase sit to stand to Minimal assistance. Goal to be met by: 06/13/17 GOAL 3: Pt to be able to make a full fist with LUE. Goal to be met by: 06/13/17 GOAL 4: Pt to be minimal assistance for toilet or BSC transfers. Goal to be met by: 06/13/17 [facility] Goals GOAL 1: Pt to increase supine to sit to minimal assistance. Goal to be met by: 06/15/17 GOAL 2: Pt to increase functional mobility to minimal assistance with ócsar walker Goal to be met by: 06/15/17 GOAL 3: Pt to increase independence of ADLS to moderate assistance. Goal to be met by: 06/15/17 Plan Plan of Care: Therapeutic EX, Neuromuscular Re-Educ, Therapeutic Activity, Self- Care/Home Management Frequency of Treatment: 1-2 X day, as tolerated Duration of Treatment: 1 Week Anticipated Discharge Destination: [facility] Has the Physician been added for Co-signature?: Yes
[2017-06-07] MEDS: CALCIUM 500 + VIT D 200 MG TABLET PO SCH ×2 (09:08→21:44)
[2017-06-07] MEDS: SINEMET 25-100 PO SCH ×2 (09:08→21:44)
[2017-06-07] MEDS: DIFLUCAN PO SCH (09:09)
[2017-06-07] MEDS: GLUCOTROL PO SCH ×2 (09:09→17:14)
[2017-06-07] MEDS: JANUVIA PO SCH (09:11)
[2017-06-07] MEDS: LOVENOX SUBCUT SCH (09:12)
[2017-06-07] MEDS: MICATIN TP SCH ×2 (09:18→21:44)
[2017-06-07] MEDS: CALMOSEPTINE OINTMENT TP SCH ×2 (09:19→21:42)
[2017-06-07] MEDS: LANTUS SUBCUT SCH (21:44)
[2017-06-08] MEDS: SODIUM CHLORIDE 1,000 ML IV SCH ×2 (02:28→06:11)
[2017-06-08] MEDS: NON-FORMULARY MEDICATION (Canagliflozin [Invokana] 100 MG) PO SCH (05:47)
[2017-06-08] MEDS: PROTONIX PO SCH (05:47)
--- NOTE | 2017-06-08 07:00 | PN ---
DATE OF SERVICE: 06/07/17 CHIEF COMPLAINT: Weakness. BRIEF HISTORY OF PRESENT ILLNESS: She presented to the emergency room after a fall at home. She was found to have a comminuted left humeral neck fracture and was placed in splint and given Morphine for pain control. She was admitted for pain control and has required Morphine on and off since admission. Her gait has been poor. She has been up to the chair but not walking a great deal. She was found to have a perineal rash, probably Candidiasis combined with her on and off urinary incontinence. We have started her on topical fungal creams and Diflucan. It may be a little better today. Her prior poor gait and somewhat contributed to by lower extremity weakness; only wanted to do an MRI of her head today (something recommended by Dr. Vázquez on a remote neurologic evaluation). She wasn't able to tolerate the MRI today and they have requested that it be canceled. Her gait was declining before admission. The family has started working with [facility] a prison as we do not anticipate with the multiple liabilities that we have that she is going to be dischargeable home. She did eat some. Again, is stooling and voiding. OBJECTIVE: V/S: Temperature 98.5, pulse 83, respirations 13, BP 171/81 but just prior to this a blood pressure of 136/78. A1C ended up being 7.2, folate 35 normal. B12 normal at 659 and both TSH and free T4 are normal. The white count is 10.81 down from 13 with the fluid she was given. Her hemoglobin was 12.1 down from 13.4 with no signs of bleeding. GENERAL: Obvious distress. INTEGUMENT: Confluent erythema of labia minora and a little further out. Few scattered excoriated shallow ulcers. The entire area was dry and is now cream covered. Eyegrounds are pink, nonicteric sclerae. Mucous membranes moist. HEENT: Facial symmetry. Pupils equal. Extraocular movements intact. NECK: Nontender without mass or thyroid. CHEST: Clear. Nontender. CARDIOVASCULAR: S1, S2 distant without murmur. There is no peripheral edema. Distal pulse intact though slightly diminished. GI: Soft. No organomegaly, mass or tenderness. MUSCULOSKELETAL/NEUROLOGIC: Senior Health Physics Technician are equal but weak; Babinski's are downward and her lower extremities are gauged 1 to 2 out of 4 strength throughout. There was tremor of the upper extremity; no fasiculations. A tremor is rest and intention. She knew she was in the hospital, the date and who I was. She was not ambulated. ASSESSMENT: # LEFT HUMERAL FRACTURE # LEFT SHOULDER PAIN - RELATED TO # RECENT FALL # LOWER EXTREMITY WEAKNESS; THIS HAS TO HAVE A CONTRIBUTION OF LOWER BACK AND SPINAL DISEASE BUT THERE IS PROBABLY ALSO A CONTRIBUTION FROM EITHER PARKINSON' S OR A PRIMARY ALZHEIMER'S. WE NEED THE MRI OF HER HEAD TO GO FURTHER. # GAIT DECLINE - RESULT OF ALL THE ABOVE # PERINEAL AND VAGINAL CANDIDIASIS - BEING TREATED # MEMORY LOSS; DR. VÁZQUEZ RATED HER MMSE MODERATE-SEVERE. AT THE SAME TIME HE DID NOT START NAMENDA, ARICEPT OR LIKE. # TREMOR # ELEVATED BLOOD PRESSURE WITHOUT DEFINITE PATTERN AND BEING ASYMPTOMATIC WE WISH TO WATCH PLAN: 1. Medications reviewed, continue same 2. Labs - daily CBC, CMP 3. Fluids - will continue through the night 4. PT - as able though admit that they are not going to be able to achieve very much in the short time she will be here. 5. Code status - full 6. Placements: I talked with Case Management and the family and it looks like [facility] has accepted and she will qualify for that tomorrow 7. Imaging studies - none other for right now - later will need carotids, MRI of the head and I am not sure about the EEG that Dr. Vázquez wanted at this point [facility]
[2017-06-08] MEDS: NORCO 7.5-325 PO PRN ×2 (08:52→14:03)
[2017-06-08] MEDS: GLUCOTROL PO SCH ×2 (08:54→17:26)
[2017-06-08] MEDS: CALCIUM 500 + VIT D 200 MG TABLET PO SCH ×2 (08:55→21:38)
[2017-06-08] MEDS: DIFLUCAN PO SCH (08:56)
[2017-06-08] MEDS: SINEMET 25-100 PO SCH ×2 (08:57→21:38)
[2017-06-08] MEDS: JANUVIA PO SCH (08:57)
[2017-06-08] MEDS: FOLIC ACID PO SCH (08:59)
[2017-06-08] MEDS: MICATIN TP SCH ×2 (09:00→21:39)
[2017-06-08] MEDS: CALMOSEPTINE OINTMENT TP SCH ×2 (09:00→21:39)
[2017-06-08] MEDS: LOVENOX SUBCUT SCH (09:04)
[2017-06-08] MEDS ORDERED: GLYCERIN SUPPOSITORY RC STA (11:34)
[2017-06-08] MEDS: LANTUS SUBCUT SCH (21:38)
[2017-06-09] MEDS: NON-FORMULARY MEDICATION (Canagliflozin [Invokana] 100 MG) PO SCH (05:48)
[2017-06-09] MEDS: PROTONIX PO SCH (05:49)
[2017-06-09] MEDS: LOVENOX SUBCUT SCH (08:58)
[2017-06-09] MEDS: MICATIN TP SCH (08:59)
[2017-06-09] MEDS: FOLIC ACID PO SCH (09:00)
[2017-06-09] MEDS: CALCIUM 500 + VIT D 200 MG TABLET PO SCH (09:00)
[2017-06-09] MEDS: CALMOSEPTINE OINTMENT TP SCH (09:00)
[2017-06-09] MEDS: JANUVIA PO SCH (09:00)
[2017-06-09] MEDS: SINEMET 25-100 PO SCH (09:00)
[2017-06-09] MEDS: GLUCOTROL PO SCH (09:01)
[2017-06-09 09:32] VITALS: BP 156/73; TEMP 98.1
[2017-06-09] MEDS: NORCO 7.5-325 PO PRN (11:21)
--- NOTE | 2017-06-12 10:26 | PN ---
DATE OF SERVICE: 06/08/17 CHIEF COMPLAINT: Weakness. BRIEF HISTORY OF PRESENT ILLNESS: The patient came through the ER after fall at home. She was found to have a comminuted left humeral neck fracture and was placed in a shoulder immobilizer. She required Morphine for initial pain control. She had been tapering from Morphine to [place] on and off since. Gait was poor at home. With therapy, it hasn 't improved a great deal here. In fact, she has only been up minimally to a chair. Her initial perineal rash has improved after Diflucan, topical antifungals keeping the area dry, stopping the Invokana; despite occasional urinary incontinence. The family recognized even prior to admission that fci placement was probably going to be needed; Drafter was arranged such and we thought she was going to be able to go today but due to bed availability she is going to have to stay until tomorrow. She is eating, drinking, stooling and voiding. PHYSICAL EXAMINATION: V/S: Temperature 98.1, pulse 88, BP 136/77, respirations 16, sats 98% on room air. GENERAL: Obvious distress. INTEGUMENT: Confluent erythema of labia minora and a little further out. Few scattered excoriated shallow ulcers. The entire area was dry and is now cream covered. Eyegrounds are pink, nonicteric sclerae. Mucous membranes moist. HEENT: Facial symmetry. Pupils equal. Extraocular movements intact. NECK: Nontender without mass or thyroid. CHEST: Clear. Nontender. CARDIOVASCULAR: S1, S2 distant without murmur. There is no peripheral edema. Distal pulse intact though slightly diminished. GI: Soft. No organomegaly, mass or tenderness. MUSCULOSKELETAL/NEUROLOGIC: Special Delivery Mail Carrier are equal but weak; Babinski's are downward and her lower extremities are gauged 1 to 2 out of 4 strength throughout. There was tremor of the upper extremity; no fasiculations. A tremor is rest and intention. She knew she was in the hospital, the date and who I was. She was not ambulated. LABS/X-RAYS: None today. ASSESSMENT: # LEFT HUMERAL FRACTURE # LEFT SHOULDER PAIN - RELATED TO # RECENT FALL # LOWER EXTREMITY WEAKNESS; THIS HAS TO HAVE A CONTRIBUTION OF LOWER BACK AND SPINAL DISEASE BUT THERE IS PROBABLY ALSO A CONTRIBUTION FROM EITHER PARKINSON' S OR A PRIMARY ALZHEIMER'S. WE NEED THE MRI OF HER HEAD TO GO FURTHER. # GAIT DECLINE - RESULT OF ALL THE ABOVE # PERINEAL AND VAGINAL CANDIDIASIS - BEING TREATED # MEMORY LOSS; DR. GARCIA RATED HER MMSE MODERATE-SEVERE. AT THE SAME TIME HE DID NOT START NAMENDA, ARICEPT OR LIKE. # TREMOR # ELEVATED BLOOD PRESSURE WITHOUT DEFINITE PATTERN AND BEING ASYMPTOMATIC WE WISH TO WATCH Overall, she is remaining relatively stable but continues to have enough weakness in her lower extremity that gait is not steady and actually is unsafe. She needs further skilled care; she will eventually need evaluation with Orthopedics and perhaps back to neurology if and after we can get MRI, carotids and maybe an EEG that they requested. PLAN: 1. Medications, activities and others will remain the same through tomorrow. Hopefully then there will be a bed available at [facility] and she can be transferred there. SYLVESTER
--- NOTE | 2017-06-13 10:12 | RS.OTQKDC ---
OT Discharge Date of Discharge: 06/09/17 Reason for Discharge: Pt discharged to [facility] for rehab due to fractured humerus.
== END 2017-06-09 13:00 | DRG 563 ==
LOC: ED 19:22 → OBSVTOIN 21:50 → MEDSURG B 21:50
PROVIDERS: ADMIT Family Medicine; ATTEND Family Medicine
DX: S42.212A Unspecified displaced fracture of surgical neck of left humerus, initial encounter for closed fracture (principal); S39.92XA Unspecified injury of lower back, initial encounter; M54.2 Cervicalgia; M79.602 Pain in left arm; M25.552 Pain in left hip; M62.81 Muscle weakness (generalized); E11.9 Type 2 diabetes mellitus without complications; G20 Parkinson's disease; I10 Essential (primary) hypertension; R32 Unspecified urinary incontinence; N30.20 Other chronic cystitis without hematuria; B37.3 Candidiasis of vulva and vagina; F03.90 Unspecified dementia, unspecified severity, without behavioral disturbance, psychotic disturbance, mood disturbance, and anxiety; M47.9 Spondylosis, unspecified; R26.2 Difficulty in walking, not elsewhere classified; W19.XXXA Unspecified fall, initial encounter; Z79.84 Long term (current) use of oral hypoglycemic drugs; Z79.899 Other long term (current) drug therapy; Y92.009 Unspecified place in unspecified non-institutional (private) residence as the place of occurrence of the external cause
CPT/HCPCS: 36415; 80053; 82550; 82607; 82746; 82962; 83036; 83880; 84439; 84443; 84484; 85025; 85651; 86140; 93005; 93010; 96374; 96375; 99285

== ENCOUNTER 2017-08-07 14:50 | Outpatient (CLI) | payer OTHER | END 2017-08-07 15:10 | disposition short-term general hospital (02) | LOC: AMBL 14:50 | PROVIDERS: ATTEND Emergency Medicine | DX: R41.0 Disorientation, unspecified (principal); H57.9 Unspecified disorder of eye and adnexa ==